=== PATIENT | male | born 1990 | race Caucasian/White ===

== ENCOUNTER 2024-08-04 20:16 | Emergency (ER) | payer OTHER ==
[2024-08-04 20:26] VITALS: BP 130/77; PULSE 67; RESP 18; TEMP 98.3; BMI 29.1
== END 2024-08-04 22:51 | disposition home or self-care (01) ==
LOC: JER 20:16 → JERFT 20:16
DX: M25.561 Pain in right knee (principal)
CPT/HCPCS: 73562-TC-RT-FY; 99283-25